=== PATIENT | female | born 1955 | race American Indian/Alaskan Native ===

== ENCOUNTER 2020-01-24 17:57 | Emergency (ER) | payer OTHER ==
--- NOTE | 2020-01-24 18:01 | Event Note ---
ED Screening Note ED Screening Note: just dc from [address]rd [address] Quinn care home would not take her in condition she is in The fam called the nurses station and they said bring her back via ER This initial assessment/diagnostic orders/clinical plan/treatment(s) is/are subject to change based on patients health status, clinical progression and re- assessment by fellow clinical providers in the ED. Further treatment and workup at subsequent clinical providers discretion. Patient/guardian urged not to elope from the ED as their condition may be serious if not clinically assessed and managed. Initial orders include: labs/admit
[2020-01-24 20:02] LABS: Basophils # (Auto) 0.1 K/mm3 (0.0-0.1); Basophils % (Auto) 0.5 % (0.0-1.8); Eosinophils # (Auto) 0.1 K/mm3 (0.0-0.4); Eosinophils % (Auto) 0.9 % (0.0-4.3); Hematocrit 35.2 % (30.3-42.9); Hemoglobin 11.8 gm/dl (10.1-14.3); Lymphocytes # (Auto) 1.8 K/mm3 (1.2-5.4); Lymphocytes % (Auto) 14.4 % (13.4-35.0); Mean Corpuscular HGB Conc 33 % (30-34); Mean Corpuscular Volume 90 fl (79-97); Monocytes # (Auto) 0.8 K/mm3 (0.0-0.8); Monocytes % (Auto) 6.2 % (0.0-7.3); Platelet Count 358 K/mm3 (140-440); Red Blood Count 3.93 M/mm3 (3.65-5.03); Red Cell Distribution Width 13.1 % (13.2-15.2)
[2020-01-24 20:12] LABS: Alanine Aminotransferase 38 units/L (7-56); Albumin 3.9 g/dL (3.9-5); Blood Urea Nitrogen 16 mg/dL (7-17); Hemolysis Index 5
[2020-01-24 20:17] LABS: BUN/Creatinine Ratio 27
--- NOTE | 2020-01-24 21:44 | XRay Report ---
CHEST 2 VIEWS INDICATION / CLINICAL INFORMATION: chills. COMPARISON: 01/20/20 FINDINGS: SUPPORT DEVICES: None. HEART / MEDIASTINUM: No significant abnormality. LUNGS / PLEURA: No significant pulmonary or pleural abnormality. No pneumothorax. ADDITIONAL FINDINGS: No significant additional findings. IMPRESSION: 1. No acute findings. Signer Name: Meghann Duncan MD Signed: 01/24/2020 9:39 PM Workstation Name: [id number]
--- NOTE | 2020-01-25 00:29 | Emergency Department Report ---
HPI - General Chief Complaint: Medical Clearance Time Seen by Provider: 01/24/20 18:00 - HPI HPI: This is a 64-year-old female presents to the emergency department with a complaint of continued weakness. Patient came from [place] on 01/19 and was admitted to the hospital with polyarthritis, rhabdomyolysis, questionable pneumonia after the patient had fallen and urinated on herself. The patient was discharged from this hospital earlier today to go back to [facility] [place]. Patient was taken there by family and upon arrival the patient once again became u nstable when trying to bear weight and ambulate. [facility] said that they are unable to care for this patient given her current state and sent her back to the emergency department. She has a past medical history of hypertension. There is also some other history as the patient takes Risperdal daily. She denies any headache, chest pain, back pain, numbness. I reviewed the notes from her previous admission for Occupational Therapy and it says that the patient is unable to perform her ADLs, has impaired balance, impaired ambulation. ED Past Medical Hx - Past Medical History Previous Medical History?: Yes Hx Hypertension: Yes - Social History Smoking Status: Former Smoker Substance Use Type: None - Medications Home Medications: Home Medications Medication Instructions Recorded Confirmed Last Taken Type Prednisone [predniSONE (Alejandro) ER 5 mg PO QDAY #7 tablet. 01/24/20 Unknown Rx TAB] amLODIPine 10 mg PO DAILY #30 01/24/20 Unknown Rx levoFLOXacin [Levaquin] 750 mg PO QDAY #7 tablet 01/24/20 Unknown Rx risperiDONE [RisperDAL] 3 mg PO DAILY #30 01/24/20 Unknown Rx ED Review of Systems ROS: Stated complaint: BP HIGH Other details as noted in HPI Comment: All other systems reviewed and negative Constitutional: weakness. denies: chills, fever Eyes: denies: eye pain, vision change ENT: denies: ear pain, throat pain Respiratory: denies: cough, shortness of breath Cardiovascular: denies: chest pain, palpitations Gastrointestinal: denies: abdominal pain, vomiting Genitourinary: denies: dysuria, discharge Musculoskeletal: arthralgia. denies: back pain, joint swelling Skin: denies: rash, lesions Neurological: weakness. denies: headache Physical Exam - Physical Exam Vital Signs: Vital Signs 01/24/20 18:26 Temperature 99.0 F Pulse Rate 112 H Respiratory 16 Rate Blood Pressure 121/73 O2 Sat by Pulse 98 Oximetry Physical Exam: GENERAL: The patient is well-developed well-nourished. HENT: Normocephalic. Atraumatic. Patient has moist mucous membranes. EYES: Extraocular motions are intact. No nystagmus. NECK: Supple. Trachea is midline. CHEST/LUNGS: Clear to auscultation. There is no respiratory distress noted. HEART/CARDIOVASCULAR: Regular. There is no tachycardia. There is no murmur. ABDOMEN: Abdomen is soft, nontender. Patient has normal bowel sounds. There is no abdominal distention. SKIN: Skin is warm and dry. NEURO: The patient is awake, alert, and oriented. The patient is cooperative. The patient has no focal neurologic deficits. Normal speech. Cranial nerves II through XII grossly intact. No pronator drift. No dysmetria. Muscle strength is 5 out of 5 for bilateral upper extremities. Muscle strength 5/5 for dorsi plantarflexion of the feet. Muscle strength is 4 out of 5 for bilateral lower extremity leg extension. MUSCULOSKELETAL: There is no tenderness or deformity. There is no limitation range of motion. ED Course Vital Signs 01/24/20 18:26 Temperature 99.0 F Pulse Rate 112 H Respiratory 16 Rate Blood Pressure 121/73 O2 Sat by Pulse 98 Oximetry - Reevaluation(s) Reevaluation #1: 01/25/20 04:13 Lab Results 01/24/20 01/24/20 01/24/20 Range/Units 19:22 19:22 20:23 WBC 12.6 H (4.5-11.0) K/mm3 RBC 3.93 (3.65-5.03) M/mm3 Hgb 11.8 (10.1-14.3) gm/dl Hct 35.2 (30.3-42.9) % MCV 90 (79-97) fl MCH 30 (28-32) pg MCHC 33 (30-34) % RDW 13.1 L (13.2-15.2) % Plt Count 358 (140-440) K/mm3 Lymph % (Auto) 14.4 (13.4-35.0) % Tyler % (Auto) 6.2 (0.0-7.3) % Eos % (Auto) 0.9 (0.0-4.3) % Baso % (Auto) 0.5 (0.0-1.8) % Lymph # 1.8 (1.2-5.4) K/mm3 Tyler # 0.8 (0.0-0.8) K/mm3 Eos # 0.1 (0.0-0.4) K/mm3 Baso # 0.1 (0.0-0.1) K/mm3 Seg Neutrophils % 78.0 H (40.0-70.0) % Seg Neutrophils # 9.8 H (1.8-7.7) K/mm3 Sodium 136 L (137-145) mmol/L Potassium 3.5 L (3.6-5.0) mmol/L Chloride 96.6 L (98-107) mmol/L Carbon Dioxide 25 (22-30) mmol/L Anion Gap 18 mmol/L BUN 16 (7-17) mg/dL Creatinine 0.6 (0.6-1.2) mg/dL Estimated GFR > 60 ml/min BUN/Creatinine Ratio 27 % Glucose 101 H (65-100) mg/dL Calcium 10.0 (8.4-10.2) mg/dL Magnesium 1.80 (1.7-2.3) mg/dL Total Bilirubin 0.50 (0.1-1.2) mg/dL AST 28 (5-40) units/L ALT 38 (7-56) units/L Alkaline Phosphatase 67 (35-129) units/L Total Creatine Kinase 553 H (30-135) units/L Troponin T (0.00-0.029) ng/mL Total Protein 7.5 (6.3-8.2) g/dL Albumin 3.9 (3.9-5) g/dL Albumin/Globulin Ratio 1.1 % TSH (0.270-4.200) mlU/mL 01/25/20 01/25/20 Range/Units 00:57 00:57 WBC (4.5-11.0) K/mm3 RBC (3.65-5.03) M/mm3 Hgb (10.1-14.3) gm/dl Hct (30.3-42.9) % MCV (79-97) fl MCH (28-32) pg MCHC (30-34) % RDW (13.2-15.2) % Plt Count (140-440) K/mm3 Lymph % (Auto) (13.4-35.0) % Tyler % (Auto) (0.0-7.3) % Eos % (Auto) (0.0-4.3) % Baso % (Auto) (0.0-1.8) % Lymph # (1.2-5.4) K/mm3 Tyler # (0.0-0.8) K/mm3 Eos # (0.0-0.4) K/mm3 Baso # (0.0-0.1) K/mm3 Seg Neutrophils % (40.0-70.0) % Seg Neutrophils # (1.8-7.7) K/mm3 Sodium (137-145) mmol/L Potassium (3.6-5.0) mmol/L Chloride (98-107) mmol/L Carbon Dioxide (22-30) mmol/L Anion Gap mmol/L BUN (7-17) mg/dL Creatinine (0.6-1.2) mg/dL Estimated GFR ml/min BUN/Creatinine Ratio % Glucose (65-100) mg/dL Calcium (8.4-10.2) mg/dL Magnesium (1.7-2.3) mg/dL Total Bilirubin (0.1-1.2) mg/dL AST (5-40) units/L ALT (7-56) units/L Alkaline Phosphatase (35-129) units/L Total Creatine Kinase (30-135) units/L Troponin T < 0.010 (0.00-0.029) ng/mL Total Protein (6.3-8.2) g/dL Albumin (3.9-5) g/dL Albumin/Globulin Ratio % TSH 1.700 (0.270-4.200) mlU/mL ED Medical Decision Making - Lab Data Result diagrams: 01/24/20 19:22 01/24/20 19:22 - EKG Data -: EKG Interpreted by Mi EKG shows normal: sinus rhythm, axis, intervals, QRS complexes, ST-T waves Rate: normal - EKG Data When compared to previous EKG there are: previous EKG unavailable Interpretation: normal EKG - Radiology Data Radiology results: report reviewed CT head/brain wo con INDICATION / CLINICAL INFORMATION: Patient complains of weakness. TECHNIQUE: All CT scans at this location are performed using CT dose reduction for ALARA by means of automated exposure control. COMPARISON: None available. FINDINGS: Ventricle size is normal. No mass or mass effect is seen. There is no evidence of intracranial hemorrhage. No obvious area of infarction is identified. Visualized paranasal sinuses are clear. IMPRESSION: No acute findings - Medical Decision Making This patient returns to the emergency department the day she was discharged with the same complaints of some weakness and difficulty bearing weight and ambulating. Because of this the patient is not allowed to return to [place]. The evaluation that she had from occupational therapy showed that the patient is unable to complete her ADLs at this time. Therefore the patient appears to need some type of alf or rehabilitation center. A CT scan of the head was done that does not show any bleed, shift, mass, ischemia, or any other acute process. EKG is normal without ST elevation CT, or dysrhythmia. The patient's labs are unremarkable including CBC, metabolic panel, TSH, troponin. On her last admission the patient had rhabdomyolysis with a CK level greater than 6500 and today it is down to about 500. A chest x-ray was done that does not show any pneumonia, pleural effusions, pneumothorax, focal consolidation, or any other acute process. The patient's previous chest x-ray had shown some basilar pneumonitis that appears to also have improved if not resolved. Her vital signs have been reassuring throughout her ED course. At this point the patient does not appear to have any emergent medical condition that requires readmission. However, the patient will remain in the emergency department to see case management for discharge planning. Critical Care Time: No Critical care attestation.: If time is entered above; I have spent that time in minutes in the direct care of this critically ill patient, excluding procedure time. ED Disposition Clinical Impression: Decreased ambulation status, Impaired ambulation, Debility Disposition: DC-01 TO HOME OR SELFCARE Is pt being admited?: No Condition: Stable Referrals: PRIMARY CAREMD [Primary Care Provider] - 3-5 Days Time of Disposition: 04:18
--- NOTE | 2020-01-25 01:01 | Cat Scan Report ---
CT head/brain wo con INDICATION / CLINICAL INFORMATION: Patient complains of weakness. TECHNIQUE: All CT scans at this location are performed using CT dose reduction for ALARA by means of automated e xposure control. COMPARISON: None available. FINDINGS: Ventricle size is normal. No mass or mass effect is seen. There is no evidence of intracranial hemorr genny. No obvious area of infarction is identified. Visualized paranasal sinuses are clear. IMPRESSION: No acute findings Signer Name: Jared Jim MD FACR Signed: 01/25/2020 12:57 AM Workstation Name: [id number]
[2020-01-25 04:43] LABS: Bilirubin,Urine NEG (Negative); Blood,Urine NEG (Negative); Color,Urine Yellow (Yellow); Mucus,Urine FEW /HPF; Protein,Urine <15 mg/dL mg/dL (Negative); Urobilinogen,Urine < 2.0 mg/dL (<2.0)
[2020-01-25] MEDS ORDERED: ACETAMINOPHEN 325 MG TAB ONE (07:38)
[2020-01-25] MEDS ORDERED: ACETAMINOPHEN 325 MG TAB PO ONE ×2 (07:38→14:15)
[2020-01-25] MEDS ORDERED: ACETAMINOPHEN 650 MG RECT SUPP PR PRN (11:25)
[2020-01-25 15:49] VITALS: BP 132/74
== END 2020-01-25 15:48 | disposition home or self-care (01) ==
LOC: ED 17:57
DX: R26.2 Difficulty in walking, not elsewhere classified (principal); R53.81 Other malaise; I10 Essential (primary) hypertension; Z87.891 Personal history of nicotine dependence; Z79.1 Long term (current) use of non-steroidal anti-inflammatories (NSAID); Z79.899 Other long term (current) drug therapy; Z88.8 Allergy status to other drugs, medicaments and biological substances
CPT/HCPCS: 36415; 70450; 71046; 80053; 81001; 82550; 83735; 84443; 84484; 85025; 93005